=== PATIENT | male | born 1945 | race Caucasian/White ===

== ENCOUNTER 2017-09-13 11:04 | Emergency (ER) | payer OTHER ==
[~2017-09-13] VITALS: Ht 182.9 cm; Wt 78.9 kg
--- NOTE | ~2017-09-13 | EKG ---
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 HOLM : 1945 Requested By: Deny West Order Number: [id number] MD: Randell Burton Measurements Intervals [place] Rate: 61 P: 19 MO: 195 QRS: 39 QRSD: 111 T: 17 QT: 458 QTc: 462 Interpretive Statements Sinus rhythm No significant abnormality Compared to ECG 03/25/2016 16:05:49 No significant changes Electronically Signed On 09-15-2017 13:58:54 PUBLIC AFFAIRS OFFICER by Randell Burton [email or web address] <ELECTRONICALLY SIGNED> By: Randell Burton MD, [facility] 09/15/17 1358 [id number] [id number] Randell Burton MD, FACC /EPI
[~2017-09-13 11:04] MED LIST: ASA5UEC PO; ATORVASTATIN CA40 MG PO; CALCIUM500 M1 PO; COENZYME Q1050 MG PO; CYMBALTA60 MG PO; FISH OIL 1,2001 EAC1 PO; FISH OIL SOFTG1 EACH PO; FLOMAX PO; FLOMAX0.4 MG PO; GABAPENTIN PO; HYDROCODON-ACE1 EAC7 PO; HYDROCODONE-AP1 EAC6 PO; INDERAL LA 80 M80 M1 PO; INDERAL LA120 MG PO; LIDODERM 5%1 PATC1 TRANSDERM; LIPITOR20 MG PO; LISINOPRIL-HCT1 EAC1 PO; MAGNESIUM100 MG PO; NAPROSYN500 MG PO; NEURONTIN 300M300 M2 PO; NEURONTIN600 MG PO; NEXIUM20 MG PO; NEXIUM40 MG PO; PROSCAR 5MG TABL5 MG PO; RESTASIS1 EACH OP; SIMVASTATIN40 MG PO; TUMS CHEWA500 MG/11 PO; TUMS PO; VITAMIN B COMP1 EACH PO; VITAMIN D1000 UNI1 PO; ZESTORETIC 20-1 EAC2 PO; ZOLOFT 50 MG TA50 M1 PO
[2017-09-13 12:43] LABS: EOSINOPHILS 4.7 % (0.0-3.0)
[2017-09-13 12:50] LABS: ANION GAP 8 mmol/L (7-16); BUN 18 mg/dL (7-18); CALCIUM 9.2 mg/dL (8.5-10.1); CHLORIDE 95 mmol/L (98-107); CO2 29 mmol/L (21-32); CREATININE 0.8 mg/dL (0.7-1.3); GLUCOSE 109 mg/dL (74-106); POTASSIUM 3.3 mmol/L (3.5-5.1); SODIUM 132 mmol/L (136-145)
[2017-09-13 12:51] LABS: ABSOLUTE NEUTROPHILS 5.6 thou/uL (1.4-8.2); BASOPHILS 1.3 % (0.0-2.0); HEMATOCRIT 38.1 % (42.0-52.0); LYMPHOCYTES 21.4 % (24.0-44.0); MCH 36.2 pg (26.0-34.0); MCHC 36.8 g/dL (28.0-37.0); MCV 98.5 fL (80.0-100.0); MONOCYTES 9.1 % (1.0-8.0); PLATELET COUNT 179 thou/uL (150-400); POLYS 63.5 % (36.0-66.0); RBC 3.86 mil/uL (4.50-6.00); RDW 11.4 % (10.5-14.5); WBC 8.8 thou/uL (4.0-11.0)
[2017-09-13 12:59] LABS: TROPONIN-I < 0.04 ng/mL (<0.06)
[2017-09-13] MEDS ORDERED: KEFLEX500 M1 PO (13:10)
[2017-09-13] MEDS ORDERED: HYDROCODONE-AP1 EAC6 PO (13:10)
[2017-09-13] MEDS ORDERED: POTASSIUM CHLO10 ME1 PO (13:13)
== END 2017-09-13 14:29 | disposition home or self-care (01) ==
LOC: ER 11:04
PROVIDERS: Physician Assistant
DX: S61.214A Laceration without foreign body of right ring finger without damage to nail, initial encounter (principal); F10.10 Alcohol abuse, uncomplicated; I95.1 Orthostatic hypotension; I10 Essential (primary) hypertension; Z98.890 Other specified postprocedural states; Z88.5 Allergy status to narcotic agent; W01.198A Fall on same level from slipping, tripping and stumbling with subsequent striking against other object, initial encounter; Y93.89 Activity, other specified; Y92.89 Other specified places as the place of occurrence of the external cause; Y99.8 Other external cause status

== ENCOUNTER 2017-09-23 13:05 | Day surgery (SDC) | payer OTHER ==
[~2017-09-23] VITALS: Ht 182.9 cm; Wt 80.1 kg
--- NOTE | ~2017-09-23 | O ---
[facility] [employer] [address] OPERATIVE REPORT Name: MARCEL MYERS Room #: [facility].#: [id number] Admission: 09/23/17 Attend Phys: Amparo Addison, Discharge: 09/23/17 Date of : 47 Report #: [id number] THIS REPORT FOR: //name// CC: Isma Addison DATE OF SERVICE: 09/23/2017 PREOPERATIVE DIAGNOSES: Right hand laceration with probable common digital nerve and nerve transection and ring finger flexor digitorum profundus tendon transection zone 3 and flexor digitorum superficialis transection zone 3. POSTOPERATIVE DIAGNOSES: Right hand laceration with probable common digital nerve and nerve transection and ring finger flexor digitorum profundus tendon transection zone 3 and flexor digitorum superficialis transection zone 3. PROCEDURE PERFORMED: 1. Right hand wound exploration. 2. Right common digital nerve repair using an AxoGen nerve allograft. 3. Right zone 3 ring finger, flexor digitorum superficialis tendon repair. 4. Right ring finger zone 3 flexor digitorum profundus tendon repair. SURGEON: Amparo John MD ANESTHESIA: General mask anesthesia. ESTIMATED BLOOD LOSS: 5 mL. TOURNIQUET TIME: 120 minutes. COMPLICATIONS: None. CONDITION: Stable. DISPOSITION: Recovery room. INDICATION: The patient is a 72-year-old male with the above mentioned diagnoses. He elects for operative treatment. The risks, benefits, alternatives and complications were discussed that included but not limited to significant risk of stiffness. We discussed his fingers most likely will not move fully but he actually has very functional motion. We also discussed high likelihood of incomplete nerve recovery. We discussed that his nerve sensation should improve significantly but most likely would not improve to normal. Damage to blood vessels or nerves, infection, wound healing problems and tendon rupture and no improvement in the nerve function. Informed consent was obtained. The correct extremity was identified and labeled by myself after [facility] [address] [place] [address] OPERATIVE REPORT Name: MYERSMARCEL Room #: [facility].#: [id number] Admission: 09/23/17 Attend Phys: Amparo Addison, Discharge: 09/23/17 Date of : 47 Report #: [id number] verbal confirmation of the patient as well as visual confirmation and signed informed consent. DESCRIPTION OF PROCEDURE: The patient was brought back to the operating room and placed on the operating table in supine position. He received preoperative antibiotics. Tourniquet was placed over padding on the patient's right upper extremity. The right upper extremity was sterilely prepped and draped in usual fashion. Final timeout was taken to verify the correct patient, operative procedure and operative site and all concurred. The arm was elevated, exsanguinated and the tourniquet inflated. The entire procedure was done with the aid of 3.5 times loupe magnification. Next, the sutures were removed from prior wound. The wound was then extended both distally and proximally along the line of injury. Dissection was carried down through the subcutaneous tissue with tenotomy scissors. The nerve injury was immediately identified. The neurovascular bundle had been completely transected at the level of the common digital nerve at essentially the branch point. All the nerve ends were freed, the proximal single nerve and then 2 distal nerves to the ulnar side of the long and the radial side of the ring finger. The tendons were evaluated. The A1 allen was partially incised and each stump was easily identified without significant difficulty. Next, attention was placed to performing the nerve repair using 3.5 times loupe magnification. The nerve ends were then trimmed back to nice healthy fascicles. At this point, the proximal end measured about 3 mm and so a 3 mm AxoGen advanced nerve allograft was chosen. It was appropriately sawed and then multiple epineural stitches were used to loosely reapproximate the graft to the proximal stump of the nerve. This was done using 9-0 nylon suture and microsurgical technique as well as 3.5 times loupe magnification. Next, a 4 mm tube was then placed over the junction site and multiple tension reducing sutures were used to reduce the tension across the repair site. Next, the 2 stumps were sutured together with a single epineural stitch and then they were repaired to the allograft and nerve. The allograft nerve ended up being approximately 2.2 cm. A 3 mm tube was then placed around this junction site and tension reducing stitches were used on this as well. The repair sites were all evaluated and noted to be in good condition. Next, attention was placed to the tendons; the FDS and FDP tendons were easily repaired using locked cruciate stitch with 3-0 Supramid suture. This was then oversewn on each with a 6-0 Prolene suture using a running locked epitenon stitch. The repair was felt to be very strong. There was no gapping with motion and the arcade of the digits appeared to be normal. The wounds were all thoroughly irrigated. The skin was closed with 4-0 nylon suture. The wounds were dressed with Adaptic and sterile gauze. He was placed in a bulky compressive dressing and a volar and dorsal flat splint with the wrist and fingers in flexion. He tolerated the procedure well. All fingers were pink with brisk capillary refill at the conclusion of the case after deflation of [facility] [address] [place] [address] OPERATIVE REPORT Name: MARCEL MYERS Room #: [facility] M.R.#: [id number] Admission: 09/23/17 Attend Phys: Amparo Addison, Discharge: 09/23/17 Date of : 47 Report #: [id number] tourniquet. All sponge, needle counts were correct. The patient was transferred to postoperative recovery room in stable condition. <ELECTRONICALLY SIGNED> By: Amparo Addison MD 10/10/17 1502 [id number] [id number] Amparo Addison MD /nt
[~2017-09-23 13:05] MED LIST changes: +KEFLEX500 M1 PO; +POTASSIUM CHLO10 ME1 PO
[2017-09-23 14:55] VITALS: BP 130/89
[2017-09-23 18:37] VITALS: BP 130/89
== END 2017-09-23 19:26 | disposition home or self-care (01) ==
LOC: TBA 13:05 → OR 13:05 → TBA 13:06 → OR 19:26
DX: S61.411A Laceration without foreign body of right hand, initial encounter (principal); S64.498A Injury of digital nerve of other finger, initial encounter; S66.194A Other injury of flexor muscle, fascia and tendon of right ring finger at wrist and hand level, initial encounter; Z88.5 Allergy status to narcotic agent; Z79.82 Long term (current) use of aspirin; Z88.8 Allergy status to other drugs, medicaments and biological substances; Z79.891 Long term (current) use of opiate analgesic; X58.XXXA Exposure to other specified factors, initial encounter; Y93.89 Activity, other specified; Y92.89 Other specified places as the place of occurrence of the external cause; Y99.8 Other external cause status
CPT/HCPCS: 50010; 50101; 50386; 51736; 55430; 56525; 56526; 56532; 57006; 57091; 62110; 62900; 70005

== ENCOUNTER 2020-04-14 23:51 | Emergency (ER) | payer OTHER ==
[~2020-04-14] VITALS: Ht 182.9 cm; Wt 81.7 kg
[2020-04-15 01:03] LABS: ABSOLUTE NEUTROPHILS 4.8 thou/uL (1.4-8.2); BASOPHILS 0.6 % (0.0-2.0); EOSINOPHILS 3.2 % (0.0-3.0); HEMATOCRIT 37.5 % (42.0-52.0); HEMOGLOBIN 13.3 gm/dL (14.0-18.0); LYMPHOCYTES 28.2 % (24.0-44.0); MCH 37.2 pg (26.0-34.0); MCHC 35.6 g/dL (28.0-37.0); MCV 104.6 fL (80.0-100.0); MONOCYTES 8.3 % (1.0-8.0); PLATELET COUNT 200 thou/uL (150-400); POLYS 59.7 % (36.0-66.0); RBC 3.59 mil/uL (4.50-6.00); RDW 11.8 % (10.5-14.5)
[2020-04-15 01:10] LABS: ANION GAP 12 mmol/L (7-16); BUN 11 mg/dL (7-18); CALCIUM 8.2 mg/dL (8.5-10.1); CHLORIDE 93 mmol/L (98-107); CO2 26 mmol/L (21-32); CREATININE 0.9 mg/dL (0.7-1.3); GLUCOSE 100 mg/dL (74-106); SODIUM 131 mmol/L (136-145)
[2020-04-15 01:18] LABS: TROPONIN-I <0.06 ng/mL (<0.06)
[2020-04-15] MEDS ORDERED: CARAFATE1 GM/10 ML PO (03:18)
[2020-04-15 03:51] VITALS: BP 115/68
--- NOTE | 2020-04-15 09:22 | EKG ---
[facility] [place] [address] ELECTROCARDIOGRAM REPORT Name: MARCEL MYERS [facility]: [facility] [id number] Admission: 04/14/20 Attend Phys: Discharge: 04/15/20 Date of : 47 Report #: [id number] THIS REPORT FOR: cc: Isma Grimaldo MD, Eric K. 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 Travel: [facility] : 1945 Requested By: Markos Bejarano Order Number: [id number] MD: Randell Burton Measurements Intervals [place] Rate: 61 P: 21 ND: 211 QRS: 10 QRSD: 108 T: 8 QT: 452 QTc: 456 Interpretive Statements Sinus rhythm Normal tracing Compared to ECG 09/13/2017 11:48:18 No significant changes Electronically Signed On 04-15-2020 9:22:19 CDT by Randell Burton [email or web address] <ELECTRONICALLY SIGNED> By: Randell Burton MD, FAC 04/15/20 0922 2357 56 Randell Burton MD, [facility] /EPI
== END 2020-04-15 03:59 | disposition home or self-care (01) ==
LOC: ER 23:51
PROVIDERS: Emergency Medicine
DX: K21.9 Gastro-esophageal reflux disease without esophagitis (principal); E87.6 Hypokalemia; R07.89 Other chest pain; M54.6 Pain in thoracic spine; I10 Essential (primary) hypertension; Z98.890 Other specified postprocedural states; Z79.899 Other long term (current) drug therapy; Z79.82 Long term (current) use of aspirin; Z88.8 Allergy status to other drugs, medicaments and biological substances

== ENCOUNTER 2021-03-21 19:06 | Emergency (ER) | payer OTHER ==
[~2021-03-21] VITALS: Ht 182.9 cm; Wt 86.2 kg
[~2021-03-21 19:06] MED LIST changes: +CARAFATE1 GM/10 ML PO
[2021-03-21] MEDS ORDERED: NORCO5 PO (21:42)
[2021-03-21 22:33] VITALS: BP 116/62
[2021-03-23] MEDS ORDERED: ASA81BEC PO (11:58)
[2021-03-23] MEDS ORDERED: LIPITOR 40 MG T40 M1 PO (11:59)
[2021-03-23] MEDS ORDERED: ZOLOFT50 M1 PO (12:01)
[2021-03-23] MEDS ORDERED: DULOXETINE HCL20 MG PO (12:02)
[2021-03-23] MEDS ORDERED: TRIAMTERENE-HC1 EAC2 PO (12:03)
== END 2021-03-21 22:33 | disposition home or self-care (01) ==
LOC: ER 19:06
DX: M25.511 Pain in right shoulder (principal); R22.31 Localized swelling, mass and lump, right upper limb; I10 Essential (primary) hypertension; Z98.890 Other specified postprocedural states; Z88.8 Allergy status to other drugs, medicaments and biological substances; W18.39XA Other fall on same level, initial encounter; Y93.89 Activity, other specified; Y92.89 Other specified places as the place of occurrence of the external cause; Y99.8 Other external cause status

== ENCOUNTER 2021-03-24 06:12 | Observation (INO) | payer OTHER ==
[2021-03-24] VITALS (7 sets, daily range): BP systolic 108–129; BP diastolic 69–89
[~2021-03-24] VITALS: Ht 185.4 cm; Wt 88.9 kg
[~2021-03-24 06:12] MED LIST changes: +ASA81BEC PO; +DULOXETINE HCL20 MG PO; +LIPITOR 40 MG T40 M1 PO; +NORCO5 PO; +TRIAMTERENE-HC1 EAC2 PO; +ZOLOFT50 M1 PO
--- NOTE | 2021-03-24 15:44 | NUR ---
PATIENT ARRIVED ON THE FLOOR AROUND 1200. PATIENT HAD RT HUMERUS ORIF. NO C/O PAIN OR N/V. TOLEARTING FLUIDS WELL. IV LEFT HAND. VSS. ON 2L/O2/NC. SCDS AND ICE PACKS ON. PT'S IN THE ROOM. PENDING DC ORDER. WANTED THE PATIENT TO STAY TONIGHT AT THE HOSPITAL. ADMISSION HISTORY/ ASSESMENTS AND EDUCATION COMPLETED. FALL PRECAUTION IN PLACE. CALL LIGHT IN REACH. WILL CONT TO MONITOR.
--- NOTE | 2021-03-24 16:11 | NUR ---
ASSESSMENT: CM REVIEWED CHART AND SPOKE WITH PATIENT AND HIS AT THE BEDSIDE. PT LIVES IN A HOUSE WITH HIS . PT REPORTS HAVING ABOUT 9 STEPS WITH HANDRAILS TO ENTER AND STATES ABOUT 7 STEPS WITH HANDRAILS TO EACH LEVEL. PT REPORTS THAT HE HAS A CANE TO ASSIST WITH AMBULATION. CM DISCUSSED ROLE. ASKING ABOUT BEDSIDE COMMODE. CM SPOKE WITH LIASON FROM [employer] WHO REPORTS MEDICARE WILL LIKELY NOT APPROVE A BEDSIDE COMMODE AND WOULD NEED PRIOR AUTH AND BEST BET IF THEY ARE WANTING ONE IS TO PURCHASE OFF [employer]. CM NOTIFIED AND PT. CM WILL CONTINUE TO FOLLOW TO ASSIST NEEDED. PLANS TO D/C HOME.
[2021-03-25 08:00] VITALS: BP 109/60
--- NOTE | 2021-03-25 08:26 | NUR ---
UPON SHIFT ASSESSMENT, PT AOX4. PT DENIES PAIN AND SOB WHILE ON 2L O2 VIA NC, INTERMITTENTLY ON ROOM AIR WITHOUT EXERTION OR DESATURATION. PT EXPRESSES CONCERN FOR RECEIVING QHS GABAPENTIN. MEDICATIONS RECONCILED. ONCALL ASSEMBLYMAN OR WOMAN NOTIFIED, RECEIVED ORDERS FOR ONETIME 600MG GABAPENTIN TO TOTAL 900MG GIVEN AT HS IN ADDITION TO 900MG GABAPENTIN QHS STARTING 03/25/21. PT HAS PRN PO NORCO Q4HR AVAILABLE. PT TOLERATING PO INTAKE OF FLUIDS AND REGULAR DIET WITHOUT ISSUE. PT WITHOUT NAUSEA OR EMESIS. PT VOIDING PER URINAL AT BEDSIDE. PT RESTING IN BED THROUGHOUT SHIFT, FREQUENT REPOSITIONING ENCOURAGED, PT REFUSING REPOSITIONING ASSISTANCE DUE TO REPORTS OF INDEPENDENCE AND COMFORT. PT REPORTS CHRONIC NUMBNESS IN BOTH FEET AND TINGLING IN RIGHT HAND. CAPILLARY REFILL LESS THAN 3SEC, PERIPHERAL PULSES PALPABLE IN ALL EXTREMITIES. PT MAINTAINS BRACE TO RUE, SURGICAL DRESSING TO RUE INTACT-NO DRAINAGE NOTED, ABLE TO MOBILIZE HAND WITHOUT ISSUE, NO WEIGHTBEARING TO RIGHT HAND/RLE OVERNIGHT. PT ENCOURAGED TO NOTIFY STAFF FOR ALL NEEDS, CALL LIGHT WITHIN REACH, BED ALARM ON, BED LOCKED IN LOWEST POSITION, FREQUENT MONITORING WILL CONTINUE. PT NOTIFIED STAFF APPROX 0300 OF PAINFUL SENSATION TO RIGHT SHOULDER, RATING 7-9/10 PAIN. PT GIVEN PRN PO NORCO WITH DESIRED EFFECT. FREQUENT MONITORING WILL CONTINUE.
--- NOTE | 2021-03-25 09:13 | O ---
[facility] [place] [address] [address] OPERATIVE REPORT Name: MARCEL MYERS Room #: 447-P [facility]..#: [id number] Admission: 03/24/21 Attend Phys: Maurice Camejo MD Discharge: Date of : 47 Report #: [id number] THIS REPORT FOR: cc: Isma Grimaldo MD, Eric K. MD Clymer, David J. MD ~ DOC #: [id number] Maurice Camejo MD DATE OF SERVICE: 03/24/2021 PREOPERATIVE DIAGNOSIS: Complex comminuted fracture, right proximal humerus. POSTOPERATIVE DIAGNOSIS: Complex comminuted fracture, right proximal humerus. PROCEDURE: Open reduction and internal fixation right proximal humerus fracture. SURGEON: Maurice Camejo MD INDICATIONS: This generally active and fit 75-year-old gentleman fell at home injuring the right shoulder. X-rays confirm a moderately comminuted displaced and unstable fracture at the surgical neck level of the right proximal humerus. We discussed treatment options and elected to go ahead with surgical repair. DESCRIPTION OF PROCEDURE: The patient was taken to the operating room where he was placed under general anesthesia. Prophylactic intravenous antibiotics were administered. The right shoulder and arm were meticulously prepped and draped. An anterior longitudinal skin incision was made. This was extended through subcutaneous tissues and the deltopectoral interval. The deltoid was reflected superiorly and laterally exposing the fracture and proximal humerus. The fracture was found to be moderately comminuted and the bone moderately osteopenic. A satisfactory reduction was established and the fracture was gently impacted to improve overall stability. A Synthes locking proximal humerus plate was then selected and applied and held temporarily with multiple smooth pins. Position was assessed with C-arm. Multiple screws were then placed in a spreading array through the humeral head and with 3 cortical screws at the distal aspect of the plate. Ultimately 8 screws were used proximally and 3 screws were used distally. Several screws were advanced just to the subchondral bone to engage good purchase as the head is somewhat osteopenic. Careful attention was given to examining the depth of the screws with multiple views on C-arm and fluoroscopy. There did not appear to be any penetration into the joint surface and the humeral head seems to be well aligned relative to the glenoid. The fracture seems to be in good position and appears to be stable. The wound was copiously irrigated. Good hemostasis was established. The muscle and fascial layer was closed with #1 Vicryl. The subcutaneous tissues were closed with 2-0 Monocryl. The skin was closed with skin kaitlynn. A sterile [address] [address] OPERATIVE REPORT Name: MYERSMARCEL [place] [id number] Admission: 03/24/21 Attend Phys: Maurice Camejo MD Discharge: Date of : 47 Report #: [id number] dressing was applied. The patient was then awakened and returned to recovery room in good condition. MD EDWIN Galan/EVERARDO <ELECTRONICALLY SIGNED> By: Maurice Camejo MD 03/25/2113 0808 0837 Maurice Camejo MD /nt
[2021-03-25 10:23] VITALS: BP 109/60
--- NOTE | 2021-03-25 11:44 | NUR ---
Assumed pt care this am, pain is managed with medications VS stable. Right arm sling in place, dressing c/d/i. Tremeors present, fal;l precautions in place. Seen by MD, dc orders given, instructions given to the pt, IV removed. Pt has been picked up by the , pt wheeled down to the ER. Pt is now dc.
== END 2021-03-25 12:06 | disposition home or self-care (01) ==
LOC: TBA 06:12 → OR 06:12 → 4S 12:24 → OR 19:26 → 4S 19:26
PROVIDERS: ADMIT Orthopaedic Surgery; ATTEND Orthopaedic Surgery
DX: S42.201A Unspecified fracture of upper end of right humerus, initial encounter for closed fracture (principal); I10 Essential (primary) hypertension; E78.00 Pure hypercholesterolemia, unspecified; N40.0 Benign prostatic hyperplasia without lower urinary tract symptoms; Z79.899 Other long term (current) drug therapy; W19.XXXA Unspecified fall, initial encounter; Y93.89 Activity, other specified; Y92.89 Other specified places as the place of occurrence of the external cause
CPT/HCPCS: 50010; 50101; 50341; 50386; 50403; 50567; 50568; 51412; 54330; 56525; 56667; 64043; 65060; 70005